=== PATIENT | male | born 1970 ===

== ENCOUNTER 2023-07-29 17:07 | Emergency (ER) | payer BC, SELFPAY ==
[2023-07-29 17:20] VITALS: BP 170/103
[2023-07-29 17:40] LABS: % Basophils 0.7 % (0-2); % Eosinophils 2.2 % (0-6); % Immature Granulocytes 0.2 % (0-0.5); % Lymphocytes 42.2 % (20.5-51.1); % Monocytes 10.2 % (1.7-9.3); % Neutrophils 44.5 % (42.2-75.2); Absolute Basophils 0.1 10^3/uL (0-0.2); Absolute Eosinophils 0.2 10^3/uL (0-0.7); Absolute Lymphocytes 3.4 10^3/uL (1.2-3.4); Absolute Monocytes 0.8 10^3/uL (0.1-0.6); Absolute Neutrophils 3.6 10^3/uL (1.4-6.5); Hematocrit 48.1 % (39.0-52.0); Hemoglobin 16.7 g/dL (13.0-18.0); Mean Corp Hgb Conc. 34.7 g/dL (33.0-37.0); Mean Corpuscular Volume 92.1 fL (80.0-94.0); Mean Platelet Volume 10.7 fL (7.4-10.4); Nucleated Red Blood Cells % 0 % (-); Platelet Count 192 10^3/uL (130-400); Red Blood Cell Count 5.22 10^6/uL (4.70-6.10); White Blood Cell Count 8.1 10^3/uL (4.8-10.8)
[2023-07-29 17:52] LABS: ALT (SGPT) 226 U/L (0-50); AST (SGOT) 133 U/L (17-59); Albumin 4.6 g/dl (3.5-5.0); Alkaline Phosphatase 120 U/L (38-126); Blood Urea Nitrogen 10 mg/dl (9-20); Calcium 9.1 mg/dl (8.4-10.2); Carbon Dioxide 25 mmol/L (22-30); Chloride 102 mmol/L (98-107); Glucose 138 mg/dl (70-99); Sodium 134 mmol/L (135-145); Total Bilirubin 0.9 mg/dl (0.2-1.3); Total Protein 8.2 g/dl (6.3-8.2); eGFR > 60.00
[2023-07-29 18:03] LABS: Troponin I < 0.012 ng/ml
[2023-07-29 19:09] VITALS: BP 159/100
[2023-07-29 20:24] VITALS: BP 134/89
--- NOTE | 2023-07-30 00:51 | ED.GENMED ---
History of Present Illness
General
Chief Complaint: Chest Pain
Source: patient
Exam Limitations: none
Time Seen by Provider: 07/29/23 18:48
Nursing documentation reviewed up to this point in time: agreed with
Travel History
Have you had any contact with someone who has COVID-19?: No
Do you have any symptoms of coronavirus? Fever > 100 degrees, chills, cough, shortness of breath, sore throat, loss of taste or smell, muscle aches, or headache?: No
History of Present Illness
History of Present Illness:
Patient to ED with complaint of chest pain x 1 week. States pain is intermittent. Denies any n/v/diaphoresis No SOB, cough. Pain does not radiate. There are no aggravating or alleviating factors. He is currently asymptomatic. Brought self to
ED for eval.
Past History
Past History
ED Past Medical History: None
ED Past Surgical History: Cholecystectomy
Social History
Tobacco: Non-smoker
Drug: None
Review of Systems
Review of Systems
Constitutional: Reports no symptoms
EENT: Reports no symptoms
Respiratory: Reports no symptoms
Cardiac: Reports chest pain
ABD/GI: Reports no symptoms
: Reports no symptoms
Musculoskeletal: Reports no symptoms
Skin: Reports no symptoms
Neurological: Reports no symptoms
Hematologic/Lymphatic: Reports no symptoms
Psychiatric: Reports no symptoms
Phy Exam
General Physical Exam
General Presentation: well appearing and no apparent distress
General age: appears stated age
General Skin: warm and dry
General Habitus: normal
General Mental: alert
Cardiovascular Exam
Cardiovascular Exam: regular rate/rhythm and no edema
Pulmonary Exam
Pulmonary Exam: lungs clear and no respiratory distress
Musculoskeletal Exam
Musculoskeletal Exam: full ROM and neuro vasc intact
Skin Exam
Skin Exam: normal color, warm/dry and no rash
Psychiatric Exam
Psychiatric Exam: normal mood/affect
Scores
Heart Score for Chest Pain Patients
STEMI patient?: No
History: Slightly or Non-Suspicious
ECG: Normal
Age: >45 - <65 years
Risk Factors: No Risk Factors
Troponin: </= Normal Limit
Heart Score for Chest Pain Patients: 1
Heart Score Risk: 2.5% MACE over next 6 weeks
Course
Orders/Labs/Results
Orders:
Orders
07/29/23 17:20
EKG [Electrocardiogram (*1)] Urgent
Reason for Study: Chest Pain
EKG- Treatment ONCE
07/29/23 17:33
Complete Blood Count/With Diff Urgent
Comprehensive Metabolic Panel Urgent
Troponin I Urgent
07/29/23 18:56
US Abdomen Complete/Upper Urgent
Comment:
Reason For Exam: chest pain, elevated LFTs
07/29/23 18:57
CR Chest - 2 Views Urgent
Comment:
Reason For Exam: pain
Abnormal Lab Results
07/29/23
17:33
MCH 32.0 H pg
(27.0-31.0)
MPV 10.7 H fL
(7.4-10.4)
Absolute Monos (auto) 0.8 H 10^3/uL
(0.1-0.6)
Monocytes % 10.2 H %
(1.7-9.3)
Sodium 134 L mmol/L
(135-145)
Creatinine 0.6 L mg/dL
(0.7-1.3)
Glucose 138 H mg/dl
(70-99)
AST 133 H U/L
(17-59)
ALT 226 H U/L
(0-50)
07/29/23 17:33
07/29/23 17:33
Vital Signs
Initial and Last Documented VS:
Initial Vital Signs
Temp Pulse Resp BP Pulse Ox
97.9 F 92 18 170/103 97
07/29/23 17:20 07/29/23 17:20 07/29/23 17:20 07/29/23 17:20 07/29/23 17:20
Last Documented Vital Signs
Temp Pulse Resp BP Pulse Ox
97.9 F 88 25 134/89 95
07/29/23 17:20 07/29/23 20:24 07/29/23 20:24 07/29/23 20:24 07/29/23 20:24
*Radiology
Radiology exam reviewed: radiology read reviewed
*Pulse Oximetry
Patient hypoxic: no
*EKG
Interpretation: normal
Rate: normal
Rhythm: sinus
*Critical Care Note
Total Time (30-74mins, 75-104mins- exclusive of procedures): Not Applicable
Update Note
Update Note:
Patient remains asymptomatic in dept. EKG, Trop neg. He is discharged home and will follow up with PCP. Given instuctions on s/s to return to ED and he is agreeable to plan.
ED Attending Note
-
Portions of this chart may have been created with voice recognition software.� Occasional wrong word or��sound alike� substitutions may have occurred due to the inherent limitations of voice recognition software.
Discharge Plan
Departure
Patient Disposition: Home (Routine Discharge)
Date of Disposition: 07/29/23
Time of Disposition: 20:32
Patient with high blood pressure during this ER visit?: No
Condition: Good
Covid-19: Not Applicable
Discharge Problem:
Chest pain
Instructions: Chest Pain That Is Not Caused by the Heart (DC), Chest Pain PCP Follow Up
Prescriptions:
No Action
multivitamin Tablet
1 tab PO DAILY
B Complex Tablet Extended Release
1 tab PO DAILY
magnesium 250 mg Tablet
250 mg PO DAILY
vitamin E 268 mg (400 unit) Capsule
268 mg PO DAILY
omeprazole magnesium [Prilosec OTC] 20 mg Tablet,Delayed Release (Dr/Ec)
20 mg PO DAILY PRN (Reason: heartburn)
cinnamon bark [Cinnamon] 500 mg Capsule
500 mg PO DAILY
folic acid 0.8 mg Capsule
0.8 mg PO DAILY
apple cider vinegar 300 mg Tablet
300 mg PO DAILY
rupa extract 500 mg Capsule
500 mg PO DAILY
krill oil [id number] mg Capsule
1 cap PO DAILY
turmeric 400 mg Capsule
400 mg PO DAILY
Referrals:
UNKNOWN - PT DOES,NOT KNOW [Family Provider] -
Activity Restrictions/Additional Instructions:
Return to the emergency department immediately for any changes in/worsening of your symptoms.
Interventions
Interventions:
*Risk Screen - Suicide Last Done: 07/29/23 19:12
*General Assessment Last Done: 07/29/23 19:12
*Neglect/Abuse Screening Last Done: 07/29/23 19:12
ED- Fall Risk Assessment Last Done: 07/29/23 19:12
*ED COVID-19 Vaccine History Last Done: 07/29/23 19:12
*Nursing Disposition Last Done: 07/29/23 20:45
ED- Cardiac Assessment Last Done: 07/29/23 19:12
Discharge Date and Time
Discharge Date/Time: 07/29/23 20:46
== END 2023-07-29 20:46 | disposition home or self-care (01) ==
LOC: EMR 17:07
PROVIDERS: Emergency Medicine; EMERGENCY PHYSICIAN Emergency Medicine
DX: R07.9 Chest pain, unspecified (principal); K57.92 Diverticulitis of intestine, part unspecified, without perforation or abscess without bleeding; Z90.49 Acquired absence of other specified parts of digestive tract
CPT/HCPCS: 99284; 71046; 76700; 80053; 84484; 85025; 93005